=== PATIENT | male | born 1995 | race Caucasian/White ===

== ENCOUNTER 2018-10-19 21:04 | Emergency (ER) | payer SELFPAY ==
--- NOTE | 2018-10-19 23:37 | NUR ---
2337 - LWBS, no answer for triage multiple times, pt not found in bathroom.
== END 2018-10-19 23:37 | disposition left against medical advice (07) ==
LOC: SED 21:04
DX: Z76.5 Malingerer [conscious simulation] (principal); Z53.21 Procedure and treatment not carried out due to patient leaving prior to being seen by health care provider

== ENCOUNTER 2019-02-19 14:53 | Emergency (ER) | payer MEDICAID ==
[~2019-02-19] VITALS: Ht 167.6 cm; Wt 56.7 kg
[2019-02-19 14:53] VITALS: BP_SYST 130
[2019-02-19] MEDS ORDERED: NACL 0.9% 1,000 ML IV ONE (15:15)
[2019-02-19 15:44] VITALS: BP_SYST 125
== END 2019-02-19 15:35 | disposition home or self-care (01) ==
LOC: SED 14:53
DX: F14.10 Cocaine abuse, uncomplicated (principal); R03.0 Elevated blood-pressure reading, without diagnosis of hypertension
CPT/HCPCS: 93005; 99283